=== PATIENT | male | born 1990 | race Caucasian/White ===

== ENCOUNTER 2019-12-07 00:08 | Emergency (ER) | payer SELFPAY ==
[2019-12-07 00:19] VITALS: BP 166/112; PULSE 116; RESP 17; TEMP 36.9; O2SAT 100; BMI 19.2
--- NOTE | 2019-12-07 00:37 | ECG_ITS ---
[facility] Test Date: 2019-12-07 Pat Name: Vasile Flowers Department: Room: Gender: Male Plan Nurse: : 1990 Requested By: Neha Chamorro Order Number: [id number] Deejay MD: Susan Hassan M.D. Measurements Intervals Kiefer Rate: 112 P: 75 CT: 136 QRS: 92 QRSD: 102 T: 28 QT: 319 QTc: 436 Interpretive Statements SINUS TACHYCARDIA POSSIBLE RIGHT ATRIAL ENLARGEMENT [0.25mV P WAVE] POSSIBLE LEFT ATRIAL ENLARGEMENT [-0.1mV P WAVE IN V1/V2] BORDERLINE RIGHT AXIS DEVIATION [QRS AXIS > 90] Compared to ECG 01/30/2017 16:13:09 No significant changes Electronically Signed On 12-07-2019 12:43:33 CDT by Susan Hassan M.D. [id number] f
[2019-12-07 01:03] LABS: Basophils # 0.1 10^3/uL (0.0-0.1); Basophils % 1.1 %; Eosinophils # 0.5 10^3/uL (0.0-0.8); Eosinophils % 4.9 %; Hematocrit 45.4 % (42.0-52.0); Hemoglobin 14.8 g/dL (11.7-16.6); Lymphocytes # 2.4 10^3/uL (0.8-4.8); Lymphocytes % 25.6 %; Mean Corpuscular HGB Conc 32.6 g/dL (30.0-36.0); Mean Corpuscular Hemoglobin 29.2 pg (28.0-34.0); Mean Corpuscular Volume 89.7 fL (80-94); Mean Platelet Volume 9.5 fL (7.4-10.4); Monocytes % 10.2 %; Nucleated Red Blood Cells % 0 %; Platelet Count 235 10^3/cmm (130-400); Red Blood Count 5.06 10^6/uL (4.1-5.3); Red Cell Distribution Width 13.2 % (12.1-15.1); White Blood Count 9.5 10^3/uL (4.0-10.0)
--- NOTE | 2019-12-07 01:14 | XR_ITS ---
WS: [id number] PORTABLE CHEST HISTORY: Chest pain COMPARISON: 05/14/2014 Lungs are clear and well expanded. No pleural effusion or pneumothorax. Cardiac size: Normal. Mediastinum/Aorta: Normal mediastinum. No osseous abnormality seen. XR/XR chest 1V portable [id number] IMPRESSION: Unremarkable portable chest.
[2019-12-07 01:19] VITALS: BP 160/127; PULSE 96; RESP 14; O2SAT 100
[2019-12-07] MEDS: sodium chloride 0.9% 1,000 ML 999 ML IV (01:21)
[2019-12-07 01:30] VITALS: BP 142/113; PULSE 88; RESP 12; O2SAT 99
[2019-12-07 01:34] LABS: Alanine Aminotransferase 62 U/L (0-41); Albumin Level 4.5 g/dL (3.5-5.2); Alkaline Phosphatase 112 IU/L (40-130); Anion Gap 11.5 (5-19); Aspartate Amino Transferase 23 U/L (0-40); Blood Urea Nitrogen 15 mg/dL (6-20); Calcium 9.3 mg/dL (8.5-10.5); Carbon Dioxide 32 mmol/L (22-29); Chloride 102 mmol/L (98-107); Globulin 2.5 g/dL (1.3-4.6); Glomerular Filtration Rate 115.1 mL/min (90-130); Glucose 94 mg/dL (65-115); Osmolality Calculated 288 mOsm/kg (285-295); Potassium 4.5 mmol/L (3.5-5.1); Sodium 141 mmol/L (136-145); Total Bilirubin 0.3 mg/dL (0.15-1.2)
[2019-12-07 01:35] LABS: Troponin(5th) Baseline 6 ng/L (0-15)
--- NOTE | 2019-12-07 02:05 | W.ED.CHESTPA ---
HPI - Chest Pain General: Chief Complaint: Chest Pain Stated Complaint: cp Time Seen by Provider: 12/07/19 01:03 Source: patient Mode of arrival: ambulatory Limitations: no limitations History of Present Illness: HPI narrative: Vasile is a 29-year-old male who comes in complaining of left-sided chest pain. He states the pains been going on for the past 8 days. He states the pain is sharp and intermittent in nature. Pain is similar to when he has had a collapsed lung in the past. He states it hurts to take a deep breath, it hurts to cough but he denies any fever or shortness of breath at rest. Patient is most concerned about a collapsed lung but denies any other complaints or concerns. Associated symptoms: Deny abdominal pain, diaphoresis, dyspnea, fever(s), nausea, palpitations, syncope or vomiting Review of Systems Const: Denies: fever(s), chills, body aches, fatigue, malaise or diaphoresis Eyes: Denies: change in vision, blurry vision, blind spots, photophobia, eye discharge or eye redness ENMT: Denies: throat pain, odynophagia, hoarseness, swelling of lips/tongue, oral sores, ear or mastoid pain, ear discharge, change in hearing or nasal discharge Card: Reports: chest pain; Denies: palpitations, irregular heart rhythm, edema, lightheadedness, syncope, pre-syncope, dyspnea on exertion or orthopnea Resp: Denies: dyspnea, productive cough, non-productive cough, wheezing, hemoptysis or chest congestion GI: Denies: abdominal pain, nausea, vomiting, hematemesis, coffee ground emesis, heartburn, diarrhea, constipation, GI cramping, hematochezia or melena : Denies: flank pain, dysuria, urinary frequency, urinary urgency or hematuria Musc: Denies: neck pain, back pain, extremity pain, extremity swelling, joint pain, joint swelling, joint redness, joint warmth or joint stiffness Skin/Breast: Denies: rash, pruritus, erythema, skin tenderness or jaundice Neuro: Denies: headache(s), numbness in extremities, weakness in extremities, sensory changes, lack of coordination, difficulty walking, dizziness, vertigo, confusion, Slurred speech present or seizure-like activity Ellis/Lymph: Denies: easy bruising, easy bleeding, petechiae, purpura or enlarged lymph nodes All/Imm: Denies: urticaria, throat swelling, tongue swelling, facial swelling or acute wheezing PFSH ED PFSH: Medical History Spontaneous pneumothorax Surgical History H/O chest tube placement Physical Exam Const: COMMON NORMALS: no acute distress, patient oriented x3, no limitations, healthy appearing and well nourished GENERAL APPEARANCE: cooperative, well kempt and well developed HENMT: COMMON NORMALS: normocephalic, atraumatic, external ears normal, EAC's normal and Normal external nose present HEAD & SCALP: normal to inspection, normocephalic and atraumatic FACE & SINUS: normal facial exam and face symmetric NOSE: Normal external nose present and Normal nares present EXTERNAL EAR: Yes external ears normal EXTERNAL AUDITORY CANAL: EAC's normal MOUTH: Normal oral and palatal mucosa present, lip normal and tongue normal Eye: COMMON NORMALS: Equal, round and reactive pupils present and conjunctivae normal GENERAL EYE: appearance normal, both eyes and all related structures ALIGNMENT: Yes alignment normal PERIORBITAL: periorbital findings normal EYELID: eyelids normal CONJUNCTIVA: Yes conjunctivae normal SCLERA: sclerae normal PUPIL: Yes Equal, round and reactive pupils present Neck/C-Spine: COMMON NORMALS: full ROM, no lymphadenopathy, supple, no meningeal signs and no JVD GENERAL: Yes normal visual inspection and Yes trachea midline Chest: COMMONS NORMALS: normal inspection of the chest and normal palpation of entire chest wall Resp: COMMON NORMALS: normal respiratory effort, No retractions and No use of accessory muscles EFFORT & INSPECTION: Yes able to speak in complete sentences and Yes symmetric chest movement AUSCULTATION: no crackles, no rales, no rhonchi and no wheezes Cardio: COMMON NORMALS: no JVD, regular rate, regular rhythm, S1 normal heart sound present and S2 normal heart sound present RATE: regular rate RHYTHM: regular rhythm HEART SOUNDS: S1 normal heart sound present, S2 normal heart sound present, no click, no gallops, no murmurs, no rubs and abnormal split S2 GI: COMMON NORMALS: Soft to palpation and No hepatosplenomegaly present PALPATION: Yes Soft to palpation, No Tenderness to palpation present (GI), No Guarding due to palpation present (GI), No Rigid due to palpation, Yes No hepatosplenomegaly present, No Hernia present, No Palpable mass present and No Pulsatile mass present : COMMON NORMALS: Yes no CVA tenderness BLADDER/KIDNEY EXAM: Yes no CVA tenderness Back/Pelvis: COMMON NORMALS: no CVA tenderness, thoracic and lumbar spine normal to inspection, no thoracic nor lumbar tenderness and thoraco-lumbar ROM normal Extremity: COMMON NORMALS: normal to inspection, full ROM, capillary refill normal, no joint enlargement, no clubbing, cyanosis or edema and no calf tenderness Neuro: COMMON NORMALS: patient oriented x3, CN's II-XII intact bilaterally, moves all extremities, no focal motor deficits and no sensory deficits noted MENINGEAL SIGNS: Yes no meningeal signs SPEECH: speech normal Psych: COMMON NORMALS: mental status grossly normal, Normal thought process present, cooperative, normal affect, speech normal and activity/motor behavior normal APPEARANCE: Yes well kempt SPEECH: Yes normal speech THOUGHT PROCESS: Normal thought process present Skin: COMMON NORMALS: no rashes or lesions noted, turgor normal, no jaundice, no petechiae and no mottling GENERAL SKIN EXAM: no rashes or lesions noted and turgor normal Course Vital Signs: Vital signs: Vital Signs Temperature 98.5 F 12/07/19 00:19 Pulse Rate 88 12/07/19 01:30 Respiratory Rate 12 12/07/19 01:30 Blood Pressure 142/113 12/07/19 01:30 Pulse Oximetry 99 12/07/19 01:30 MDM - Chest Pain MDM Narrative: Medical decision making narrative: Patient's chest x-ray and lab work are unremarkable. He is feeling better and ready to go home. I think he is pain is likely due to a chest wall strain. His tachycardia is likely due to methamphetamines. Patient is relieved to hear his lab work is unremarkable he is ready to go home. He denies any other complaints or concerns. Lab Data: Attestation: I reviewed the patient's lab results. Labs: Lab Results 12/07/19 12/07/19 12/07/19 Range/Units 00:52 00:52 00:52 WBC 9.5 (4.0-10.0) 10^3/ uL RBC 5.06 (4.1-5.3) 10^6/u L Hgb 14.8 (11.7-16.6) g/dL Hct 45.4 (42.0-52.0) % MCV 89.7 (80-94) fL MCH 29.2 (28.0-34.0) pg MCHC 32.6 (30.0-36.0) g/dL RDW 13.2 (12.1-15.1) % Plt Count 235 (130-400) 10^3/c mm MPV 9.5 (7.4-10.4) fL Neut % (Auto) 58.0 % Lymph % (Auto) 25.6 % [place] % (Auto) 10.2 % Eos % (Auto) 4.9 % Baso % (Auto) 1.1 % Neut # (Auto) 5.50 (1.8-7.7) 10^3/u L Lymph # (Auto) 2.4 (0.8-4.8) 10^3/u L [place] # (Auto) 1.0 H (0.2-0.9) 10^3/u L Eos # (Auto) 0.5 (0.0-0.8) 10^3/u L Baso # (Auto) 0.1 (0.0-0.1) 10^3/u L Nucleated RBC % (a uto) 0 % Nucleated RBCs # 0.0 /100WBC D-Dimer (0-0.59) ug/mIFE U Sodium 141 (136-145) mmol/L Potassium 4.5 (3.5-5.1) mmol/L Chloride 102 (98-107) mmol/L Carbon Dioxide 32 H (22-29) mmol/L Anion Gap 11.5 (5-19) BUN 15 (6-20) mg/dL Creatinine 0.8 (0.7-1.2) mg/dL GFR Calculation 115.1 (90-130) mL/min Glucose 94 (65-115) mg/dL Calculated Osmolal ity 288 (285-295) mOsm/k g Calcium 9.3 (8.5-10.5) mg/dL Total Bilirubin 0.3 (0.15-1.2) mg/dL AST 23 (0-40) U/L ALT 62 H (0-41) U/L Alkaline Phosphata se 112 (40-130) IU/L Troponin T Baselin e 6 (0-15) ng/L Total Protein 7.0 (6.6-8.7) g/dL Albumin 4.5 (3.5-5.2) g/dL Globulin 2.5 (1.3-4.6) g/dL Urine Opiates Scre en (Negative) ng/mL Ur Barbiturates Sc reen (Negative) ng/mL Ur Phencyclidine S crn (Negative) ng/mL Ur Amphetamines Sc reen (Negative) ng/mL U Benzodiazepines Scrn (Negative) ng/mL Urine Cocaine Scre en (Negative) ng/mL U Marijuana (THC) Screen (Negative) ng/mL 12/07/19 12/07/19 Range/Units 00:52 01:27 WBC (4.0-10.0) 10^3/ uL RBC (4.1-5.3) 10^6/u L Hgb (11.7-16.6) g/dL Hct (42.0-52.0) % MCV (80-94) fL MCH (28.0-34.0) pg MCHC (30.0-36.0) g/dL RDW (12.1-15.1) % Plt Count (130-400) 10^3/c mm MPV (7.4-10.4) fL Neut % (Auto) % Lymph % (Auto) % Ren[place] % (Auto) % Eos % (Auto) % Baso % (Auto) % Neut # (Auto) (1.8-7.7) 10^3/u L Lymph # (Auto) (0.8-4.8) 10^3/u L [place] # (Auto) (0.2-0.9) 10^3/u L Eos # (Auto) (0.0-0.8) 10^3/u L Baso # (Auto) (0.0-0.1) 10^3/u L Nucleated RBC % (a uto) % Nucleated RBCs # /100WBC D-Dimer 0.31 (0-0.59) ug/mIFE U Sodium (136-145) mmol/L Potassium (3.5-5.1) mmol/L Chloride (98-107) mmol/L Carbon Dioxide (22-29) mmol/L Anion Gap (5-19) BUN (6-20) mg/dL Creatinine (0.7-1.2) mg/dL GFR Calculation (90-130) mL/min Glucose (65-115) mg/dL Calculated Osmolal ity (285-295) mOsm/k g Calcium (8.5-10.5) mg/dL Total Bilirubin (0.15-1.2) mg/dL AST (0-40) U/L ALT (0-41) U/L Alkaline Phosphata se (40-130) IU/L Troponin T Baselin e (0-15) ng/L Total Protein (6.6-8.7) g/dL Albumin (3.5-5.2) g/dL Globulin (1.3-4.6) g/dL Urine Opiates Scre en Negative (Negative) ng/mL Ur Barbiturates Sc reen Negative (Negative) ng/mL Ur Phencyclidine S crn Negative (Negative) ng/mL Ur Amphetamines Sc reen Positive H (Negative) ng/mL U Benzodiazepines Scrn Negative (Negative) ng/mL Urine Cocaine Scre en Negative (Negative) ng/mL U Marijuana (THC) Screen Negative (Negative) ng/mL EKG Data^: EKG 1: Attestation: I personally reviewed and interpreted this EKG as follows: EKG interpretation date: 12/07/19 EKG interpretation time: 00:25 Interpretation: Sinus tachycardia to 112 beats a minute, right axis deviation, left posterior fascicular block. No acute ST-T wave changes. Discharge Plan Discharge Patient Disposition: Home Clinical Impression: Chest pain Qualifiers: Chest pain type: unspecified Qualified Code(s): R07.9 - Chest pain, unspecified Condition: Stable Prescriptions: New ibuprofen [Motrin IB] 200 mg tablet 200 mg PO Q6H PRN (Reason: pain) Qty: 60 RF: 0 Discharge Orders: Discharge Order (Routine); Ordered 12/07/19 Ordered By: Neha Caro Referrals: Adryan Brody DO [Primary Care Provider] - 1-3 days Discharge Diet: Advance as tolerated Discharge Activity: Resume usual activity Patient Instructions: Chest Pain (ED) Activity Restrictions/Additional Instructions: Please return to the ER immediately for any of the signs or symptoms listed on your discharge instruction sheets, worsening/changing of your symptoms, you are not getting better as quickly as expected, or for ANY other cause or concerns. Coding Level of Care Code ED Driver'S License Reviewing Officer for Chg Fwd Exam Comprehensive
[2019-12-07 02:15] LABS: Amphetamines Screen Urine Positive (Negative); Barbiturates Screen Urine Negative (Negative); Benzodiazepines Screen Urine Negative (Negative); Cocaine Screen Urine Negative (Negative); Opiate Screen Urine Negative (Negative); PCP Screen Urine Negative (Negative); THC Screen Urine Negative (Negative)
[2019-12-07 02:18] LABS: D Dimer 0.31 ug/mIFEU (0-0.59)
[2019-12-07] MEDS: ketorolac 30 mg/mL INJ 10 MG IVP (02:43)
[2019-12-07 03:13] VITALS: BP 149/107; PULSE 92; RESP 17; O2SAT 100
== END 2019-12-07 03:16 | disposition home or self-care (01) ==
PROVIDERS: Emergency Provider Emergency Medicine; PCP Family Medicine
DX: R07.9 Chest pain, unspecified (principal)
CPT/HCPCS: 12345; 36415; 71045; 80053; 80306; 84484; 85025; 85378; 93005; 96361; 96374; 96375; 99283; 99284; J1885; J7030

== ENCOUNTER 2020-03-20 22:49 | Emergency (ER) | payer SELFPAY ==
[2020-03-20 22:55] VITALS: BP 147/96; PULSE 116; RESP 20; TEMP 36.9; O2SAT 100; BMI 19.2
--- NOTE | 2020-03-20 23:00 | CTR_ITS ---
PROCEDURE INFORMATION: Exam: CT Head Without Contrast Exam date and time: 03/20/2020 11:17 PM Age: 29 years old Clinical indication: Injury or trauma; Fall; Laceration; With loss of consciousness; Loss of consciousness for 30 minutes or less; Without residual foreign body; Forehead; Additional info: Head injury TECHNIQUE: Imaging protocol: Computed tomography of the head without contrast. Radiation optimization: All CT scans at this facility use at least one of these dose optimization techniques: automated exposure control; mA and/or kV adjustment per patient size (includes targeted exams where dose is matched to clinical indication); or iterative reconstruction. COMPARISON: No relevant prior studies available. RADIATION DOSE METRICS: Total DLP (mGy-cm): 855.88 FINDINGS: Brain: Normal. No hemorrhage. Unremarkable white matter. No mass effect. Cerebral ventricles: No ventriculomegaly. Bones/joints: Unremarkable. No acute fracture. Paranasal sinuses: Visualized sinuses are unremarkable. No fluid levels. Mastoid air cells: Visualized mastoid air cells are well aerated. Soft tissues: Unremarkable. CT/CT head wo con* [id number] IMPRESSION: Negative for intracranial hemorrhage or mass effect. Radiation Dose CTDIVOL = (mGy): DLP = 855.88 (mGy-cm)
--- NOTE | 2020-03-20 23:01 | CTR_ITS ---
PROCEDURE INFORMATION: Exam: CT Cervical Spine Without Contrast Exam date and time: 03/20/2020 11:17 PM Age: 29 years old Clinical indication: Injury or trauma; Fall; Blunt trauma; Additional info: Fall, head injury TECHNIQUE: Imaging protocol: Computed tomography images of the cervical spine without contrast. Radiation optimization: All CT scans at this facility use at least one of these dose optimization techniques: automated exposure control; mA and/or kV adjustment per patient size (includes targeted exams where dose is matched to clinical indication); or iterative reconstruction. COMPARISON: No relevant prior studies available. RADIATION DOSE METRICS: Total DLP (mGy-cm): 428.72 FINDINGS: Vertebrae: No acute fracture. Normal alignment. C2-C3: No significant disc protrusion. No severe spinal canal stenosis. No significant neural foraminal narrowing. C3-C4: No significant disc protrusion. No severe spinal canal stenosis. No significant neural foraminal narrowing. C4-C5: No significant disc protrusion. No severe spinal canal stenosis. No significant neural foraminal narrowing. C5-C6: No significant disc protrusion. No severe spinal canal stenosis. No significant neural foraminal narrowing. C6-C7: No significant disc protrusion. No severe spinal canal stenosis. No significant neural foraminal narrowing. C7-T1: No significant disc protrusion. No severe spinal canal stenosis. No significant neural foraminal narrowing. Soft tissues: Unremarkable. Lungs: Paraseptal emphysematous changes. CT/CT cervical spin wo con* [id number] IMPRESSION: Negative for fracture or dislocation Radiation Dose CTDIVOL = (mGy): DLP = 428.72 (mGy-cm)
[2020-03-20] MEDS: ondansetron 2 mg/ML SDV 2 mL 4 MG IVP (23:21)
[2020-03-20 23:22] VITALS: RESP 18; O2SAT 99
[2020-03-20] MEDS: morphine 4 mg/mL SDV 1 mL IVP (23:22)
[2020-03-20 23:26] VITALS: BP 135/101; PULSE 78; RESP 18; O2SAT 100
--- NOTE | 2020-03-20 23:54 | W.ED.FALL ---
Documented by User: Cindy Linares MD 03/21/20 04:37 HPI - Fall General: Chief Complaint: Fall Stated Complaint: head lac Time Seen by Provider: 03/20/20 23:01 History of Present Illness: HPI Narrative: This patient is a 29-year-old male who presents today after falling and striking his head on a furnace. He thinks he knocked himself out for several minutes before coming to. He has a laceration on his forehead. He also has pain in his neck and the back of his head. He comes in for further evaluation. He denies any medical history. He does admit to IV meth use. He has not used in a couple of days. He denies any other injuries from the fall. complaint: fall Onset (ago): hour(s) (1) Fall from: standing Place fall occurred: home Loss of consciousness: Yes Length of LOC: minutes(s) Prolonged down time: no Symptoms prior to fall: none and other (Was carrying wood to the furnace and tripped) Context: tripped/slipped Location of injury: head and neck Severity: moderate Severity scale (1-10): 5 Quality: sharp (Front) and dull (Back of his head) Review of Systems Eyes: Denies: change in vision Resp: Denies: dyspnea or productive cough GI: Denies: nausea or vomiting [facility] ED PFSH: Medical History (Updated 03/21/20 @ 01:09 by Cindy Linares MD) Spontaneous pneumothorax Surgical History H/O chest tube placement Physical Exam Const: COMMON NORMALS: patient oriented x3, no limitations and alert GENERAL APPEARANCE: cooperative and in distress ORIENTATION/CONSCIOUSNESS: Yes awake, Yes oriented to person, Yes oriented to place and Yes oriented to time Eye: GENERAL EYE: appearance normal, both eyes and all related structures Neck/C-Spine: COMMON NORMALS: supple, no meningeal signs and no JVD Chest: COMMONS NORMALS: normal inspection of the chest Resp: COMMON NORMALS: normal respiratory effort, No use of accessory muscles and clear to auscultation bilaterally AUSCULTATION: clear to auscultation bilaterally Cardio: COMMON NORMALS: no JVD, regular rate, regular rhythm and No murmurs present (Cardio) RATE: regular rate RHYTHM: regular rhythm GI: COMMON NORMALS: Normal to inspection, nondistended, normoactive bowel sounds present, Soft to palpation and non-tender INSPECTION: Yes normal to inspection AUSCULTATION: Yes normoactive bowel sounds PALPATION: Yes Soft to palpation Back/Pelvis: COMMON NORMALS: thoracic and lumbar spine normal to inspection Extremity: COMMON NORMALS: normal to inspection Neuro: COMMON NORMALS: patient oriented x3, moves all extremities, no focal motor deficits and no sensory deficits noted SENSORIUM/ORIENTATION: Yes alert, Yes oriented to person, Yes oriented to place and Yes oriented to time MENINGEAL SIGNS: Yes no meningeal signs Psych: COMMON NORMALS: mental status grossly normal, cooperative and normal affect Skin: COMMON NORMALS: no rashes or lesions noted and turgor normal GENERAL SKIN EXAM: no rashes or lesions noted and turgor normal Course ED course: Patient in severe pain on initial evaluation. CT of head and C-spine ordered. Morphine and Zofran given for pain. Planning for laceration repair. Vital Signs: Vital signs: Vital Signs Temperature 98.4 F 03/20/20 22:55 Pulse Rate 90 03/21/20 01:20 Respiratory Rate 18 03/21/20 01:20 Blood Pressure 136/91 03/21/20 01:20 Pulse Oximetry 99 03/21/20 01:20 Discharge Plan Discharge Patient Disposition: Home Clinical Impression: Concussion with loss of consciousness Qualifiers: Encounter type: initial encounter Qualified Code(s): S06.0X9A - Concussion with loss of consciousness of unspecified duration, initial encounter Laceration of face Qualifiers: Encounter type: initial encounter Qualified Code(s): S01.81XA - Laceration without foreign body of other part of head, initial encounter Condition: Stable Prescriptions: No Action Motrin IB 200 mg tablet 200 mg PO Q6H PRN (Reason: pain) Qty: 60 RF: 0 Discharge Orders: Discharge Order (Routine); Ordered 03/21/20 Ordered By: Cindy Linares Referrals: Adryan Brody DO [Primary Care Provider] - Discharge Diet: Usual diet Discharge Activity: Resume usual activity Patient Instructions: Laceration (ED), Concussion (ED) Activity Restrictions/Additional Instructions: Wound care as instructed. Return to have sutures removed in 5 to 7 days. Rest until headache is better. Concussion can cause symptoms including dizziness, difficulty concentrating, headache, problems with memory. Those should gradually resolve over time. You may take up to 1000 mg of acetaminophen every 4 hours and 600 mg of ibuprofen every 6 hours as needed for pain. Coding Level of Care Code ED Grounds Restoration Specialist for Leta Fwd Exam Comprehensive Documented by User: AUREA Bishop 03/21/20 19:22 HPI - Fall General: Chief Complaint: Fall Stated Complaint: head lac Time Seen by Provider: 03/20/20 23:01 [facility] ED PFSH: Medical History (Updated 03/21/20 @ 01:09 by Cindy Linares MD) Spontaneous pneumothorax Surgical History H/O chest tube placement Procedures Laceration Laceration 1: Site: scalp Size (cm): 3.5 Description: linear and clean Depth: simple, single layer Local Anesthetic: lidocaine 1% and with epi Amount of anesthesia used (mL): 4 Skin layer closed with: nylon Size (cm): 5-0 Number of sutures: 6 Technique: simple, interrupted Course Vital Signs: Vital signs: Vital Signs Temperature 98.4 F 03/20/20 22:55 Pulse Rate 90 03/21/20 01:20 Respiratory Rate 18 03/21/20 01:20 Blood Pressure 136/91 03/21/20 01:20 Pulse Oximetry 99 03/21/20 01:20 Discharge Plan Discharge Patient Disposition: Home Clinical Impression: Concussion with loss of consciousness Qualifiers: Encounter type: initial encounter Qualified Code(s): S06.0X9A - Concussion with loss of consciousness of unspecified duration, initial encounter Laceration of face Qualifiers: Encounter type: initial encounter Qualified Code(s): S01.81XA - Laceration without foreign body of other part of head, initial encounter Condition: Stable Prescriptions: No Action Motrin IB 200 mg tablet 200 mg PO Q6H PRN (Reason: pain) Qty: 60 RF: 0 Discharge Orders: Discharge Order (Routine); Ordered 03/21/20 Ordered By: Cindy Linares Referrals: Adryan Brody, [Primary Care Provider] - Discharge Diet: Usual diet Discharge Activity: Resume usual activity Patient Instructions: Laceration (ED), Concussion (ED) Activity Restrictions/Additional Instructions: Wound care as instructed. Return to have sutures removed in 5 to 7 days. Rest until headache is better. Concussion can cause symptoms including dizziness, difficulty concentrating, headache, problems with memory. Those should gradually resolve over time. You may take up to 1000 mg of acetaminophen every 4 hours and 600 mg of ibuprofen every 6 hours as needed for pain. Coding Level of Care Code ED Grounds Restoration Specialist for Chg Fwd Exam Comprehensive
[2020-03-21 00:56] VITALS: BP 127/92; RESP 78; O2SAT 98
[2020-03-21] MEDS: ketorolac 30 mg/mL INJ 15 MG IVP (01:13)
[2020-03-21] MEDS: tetanus-dipt-pertussis 0.5 mL SDV IM (01:18)
[2020-03-21 01:20] VITALS: BP 136/91; PULSE 90; RESP 18; O2SAT 99
== END 2020-03-21 01:25 | disposition home or self-care (01) ==
PROVIDERS: Emergency Provider Emergency Medicine; PCP Family Medicine
DX: S01.81XA Laceration without foreign body of other part of head, initial encounter (principal); S06.0X9A Concussion with loss of consciousness of unspecified duration, initial encounter; W22.09XA Striking against other stationary object, initial encounter; Z23 Encounter for immunization
CPT/HCPCS: 12002; 12345; 70450; 72125; 90715; 96374; 96375; 99283; J1885; J2270; J2405

== ENCOUNTER 2020-11-30 00:07 | Emergency (ER) | payer MEDICAID, SELFPAY ==
--- NOTE | 2020-11-30 00:11 | XRR_ITS ---
PROCEDURE INFORMATION: Exam: XR Left Ankle Exam date and time: 11/30/2020 12:11 AM Age: 30 years old Clinical indication: Pain; Ankle; Left; Additional info: Pain, swlling, redness in left ankle. Denies any injury TECHNIQUE: Imaging protocol: XR Left ankle. Views: 3 or more views. COMPARISON: No relevant prior studies available. FINDINGS: Bones/joints: No fracture. Soft tissues: Diffuse soft tissue edema. XR/XR ankle LT min 3V* [id number] IMPRESSION: 1. No fracture. 2. Diffuse soft tissue edema.
[2020-11-30 00:45] VITALS: BP 149/90; PULSE 124; RESP 18; TEMP 37.6; O2SAT 94; BMI 17.4
--- NOTE | 2020-11-30 00:59 | ED_ITS ---
HPI - Extremity Problem General: Chief complaint: Extremity Injury, Lower Stated complaint: l ankle injury Time Seen by Provider: 11/30/20 00:54 History of Present Illness: HPI Narrative: Patient is a 30-year-old male comes to the ED with left ankle pain and swelling. Symptoms started 3 days ago. Patient denies any injury or trauma to left ankle. Denies any cut or abrasion around left ankle as well. Swelling to the medial aspect of the ankle started and was small and there was a little bit of ecchymosis present. Over the next couple days the swelling and ecchymosis got bigger. He is now having severe pain in his left ankle and he rates the pain an 8 out of 10. He does state that he has a history of IV drug abuse but denies any recent IV drug use. Associated symptoms: Deny chest pain, fever(s) or rash Review of Systems Const: Denies: fever(s), chills or fatigue Eyes: Denies: change in vision or eye discomfort ENMT: Denies: throat pain, odynophagia, nasal discharge or nasal congestion Card: Denies: chest pain, palpitations, edema, swelling of feet/ankles, dyspnea on exertion or orthopnea Resp: Denies: dyspnea, productive cough or non-productive cough GI: Denies: abdominal pain, nausea, vomiting, diarrhea, constipation or hematochezia : Denies: flank pain, difficulty urinating, dysuria or hematuria Musc: Reports: extremity pain (Left ankle) and extremity swelling (Left ankle); Denies: neck pain or back pain Skin/Breast: Denies: rash or new lesions Neuro: Denies: headache(s), numbness in extremities or weakness in extremities PFS ED PFSH: Medical History Spontaneous pneumothorax Surgical History H/O chest tube placement Physical Exam Const: COMMON NORMALS: patient oriented x3 and alert GENERAL APPEARANCE: cooperative and in distress (pain due to left foot) HENMT: COMMON NORMALS: normocephalic HEAD & SCALP: normocephalic MOUTH: Normal oral and palatal mucosa present THROAT: posterior oropharynx normal and uvula midline Neck/C-Spine: COMMON NORMALS: supple GENERAL: Yes normal visual inspection Resp: COMMON NORMALS: normal respiratory effort, No retractions, No use of accessory muscles and clear to auscultation bilaterally AUSCULTATION: clear to auscultation bilaterally Cardio: COMMON NORMALS: regular rate, regular rhythm, S1 normal heart sound present, S2 normal heart sound present, No gallops present (Cardio), No clicks present (Cardio), No murmurs present (Cardio) and Peripheral pulses 2+ throughout RATE: regular rate RHYTHM: regular rhythm HEART SOUNDS: S1 normal heart sound present and S2 normal heart sound present PERIPHERAL PULSES: Peripheral pulses 2+ throughout GI: COMMON NORMALS: Normal to inspection, nondistended, normoactive bowel sounds present, Soft to palpation, non-tender and no masses PALPATION: Yes Soft to palpation : COMMON NORMALS: Yes no CVA tenderness BLADDER/KIDNEY EXAM: Yes no CVA tenderness Back/Pelvis: COMMON NORMALS: no CVA tenderness Extremity: NARRATIVE EXTREMITY EXAM: Left foot? significant swelling, erythema and warmth in medial aspect of left foot and ankle. He has severe tenderness which seems out of proportion to normal cellulitis. Exam findings remarkable for possible cellulitis or developing abscess. Pain with range of motion in ankle. GENERAL: Yes normal exam except as noted Neuro: COMMON NORMALS: patient oriented x3 and moves all extremities SENSORIUM/ORIENTATION: Yes alert Skin: NARRATIVE SKIN EXAM: Patient has significant swelling, erythema and warmth in medial aspect of left foot and ankle. He has severe tenderness which seems out of proportion to normal cellulitis. Exam findings remarkable for possible cellulitis or developing abscess. GENERAL SKIN EXAM: dry skin Course Vital Signs: Vital signs: Vital Signs Temperature 99.7 F H 11/30/20 00:45 Pulse Rate 110 H 11/30/20 03:26 Respiratory Rate 18 11/30/20 03:26 Blood Pressure 145/86 11/30/20 03:26 Pulse Oximetry 100 11/30/20 03:26 MDM - Extremity (Nontraumatic) MDM Narrative: Medical decision making narrative: Patient is a 30-year-old male comes to the ED with left foot and ankle swelling and pain. Patient denies any injury or trauma. He does state that he has a history of IV drug abuse but denies any recent IV drug use. Exam shows signs of cellulitis in left foot but with his extreme tenderness upon exam of suspicious for an abscess. X-ray of left ankle showed no acute fractures but did show soft tissue edema. Sodium level 129 but the rest of CBC and CMP were unremarkable. CRP is 57.2. CT of left foot with contrast showed no fractures, but did note cellulitis with no abscess developing. Patient was given IV fluids, Rocephin while here in the ED. He was also given some morphine initially and then Dilaudid to help with his pain. Patient diagnosed with cellulitis and hyponatremia. He was discharged home with Celebrex for pain and Bactrim. He was told to follow-up with his PCP in 5 days for reevaluation and recheck sodium labs. Return to ED precautions given. He was also discharged with some crutches and told to elevate his foot as much as possible to help with swelling. Patient understood agree with plan. Lab Data: Attestation: I reviewed the patient's lab results. Labs: Lab Results 11/30/20 11/30/20 Range/Units 02:55 02:55 WBC 7.8 (4.0-10.0) 10^3/ uL RBC 4.11 (4.1-5.3) 10^6/u L Hgb 12.1 (11.7-16.6) g/dL Hct 36.3 L (42.0-52.0) % MCV 88.3 (80-94) fL MCH 29.4 (28.0-34.0) pg MCHC 33.3 (30.0-36.0) g/dL RDW 12.6 (12.1-15.1) % Plt Count 182 (130-400) 10^3/c mm MPV 9.7 (7.4-10.4) fL Neut % (Auto) 49.9 % Lymph % (Auto) 31.5 % Cavalier % (Auto) 15.3 % Eos % (Auto) 2.4 % Baso % (Auto) 0.8 % Neut # (Auto) 3.90 (1.8-7.7) 10^3/u L Lymph # (Auto) 2.5 (0.8-4.8) 10^3/u L Cavalier # (Auto) 1.2 H (0.2-0.9) 10^3/u L Eos # (Auto) 0.2 (0.0-0.8) 10^3/u L Baso # (Auto) 0.1 (0.0-0.1) 10^3/u L Nucleated RBC % (a uto) 0 % Nucleated RBCs # 0.0 /100WBC Sodium 129 L (136-145) mmol/L Potassium 3.4 L (3.5-5.1) mmol/L Chloride 92 L (98-107) mmol/L Carbon Dioxide 30 H (22-29) mmol/L Anion Gap 10.4 (5-19) BUN 11 (6-20) mg/dL Creatinine 0.7 (0.7-1.2) mg/dL GFR Calculation 133.3 H (90-130) mL/min Glucose 70 (65-115) mg/dL Calculated Osmolal ity 266 L (285-295) mOsm/k g Calcium 8.5 (8.5-10.5) mg/dL Total Bilirubin 0.5 (0.15-1.2) mg/dL AST 32 (0-40) U/L ALT 42 H (0-41) U/L Alkaline Phosphata se 87 (40-130) IU/L C-Reactive Protein 57.2 H (0.0-4.9) mg/L Total Protein 6.5 L (6.6-8.7) g/dL Albumin 3.9 (3.5-5.2) g/dL Globulin 2.6 (1.3-4.6) g/dL Imaging Data^: Xray Ortho: Attestation: I personally reviewed and interpreted this imaging study as follows: Radiologist's impression: [address] [address] XRay Report Signed Patient: Vasile Flowers Unit #: [id number] : 1990 Age/Sex: 30 / M ADM Date: 11/30/20 Loc: ER Room/Bed: Attending Dr: Ordering Provider/Ordering MD: Mimi Shepherd MD Date of Service: 11/30/20 Procedure(s): XR ankle LT min 3V* [id number] Accession Number(s): [id number] Report Number: [id number] PROCEDURE INFORMATION: Exam: XR Left Ankle Exam date and time: 11/30/2020 12:11 AM Age: 30 years old Clinical indication: Pain; Ankle; Left; Additional info: Pain, swlling, redness in left ankle. Denies any injury TECHNIQUE: Imaging protocol: XR Left ankle. Views: 3 or more views. COMPARISON: No relevant prior studies available. FINDINGS: Bones/joints: No fracture. Soft tissues: Diffuse soft tissue edema. XR/XR ankle LT min 3V* [id number] IMPRESSION: 1. No fracture. 2. Diffuse soft tissue edema. Dictated By: Ankit Diaz Signed By: Ankit Diaz Signed Date/Time: 11/30/20302 DD/ [address]: Attestation: I personally reviewed and interpreted this imaging study as follows: Radiologist's impression: [facility] [address] [address] Scan Report Signed Patient: Vasile Flowers Unit #: [id number] : 1990 Age/Sex: 30 / M ADM Date: 11/30/20 Loc: ER Room/Bed: Attending Dr: Ordering Provider/Ordering MD: Jaret Eubanks Date of Service: 11/30/20 Procedure(s): CT foot LT w con [id number] Accession Number(s): [id number] Report Number: [id number] PROCEDURE INFORMATION: Exam: CT Left Lower Extremity With Contrast, Foot Exam date and time: 11/30/2020 2:26 AM Age: 30 years old Clinical indication: Cellulitis and swelling, leg or foot; Left; Patient HX: Swelling with redness to foot. Possible cellulitis. Patient appears to be in excruciating pain. ; Additional info: Foot and ankle swelling, pain and redness. No injury TECHNIQUE: Imaging protocol: CT of the Left lower extremity with intravenous contrast was performed. Exam focused on the foot. Radiation optimization: All CT scans at this facility use at least one of these dose optimization techniques: automated exposure control; mA and/or kV adjustment per patient size (includes targeted exams where dose is matched to clinical indication); or iterative reconstruction. Contrast material: OMNI 300; Contrast volume: 95 ml; Contrast route: INTRAVENOUS (IV); COMPARISON: CR (LOW EXM, ) 11/30/2020 12:48 AM RADIATION DOSE METRICS: Total DLP (mGy-cm): 138.31 FINDINGS: Bones/joints: No acute fracture or dislocation. Soft tissues: Subcutaneous edema without abscess. CT/CT foot LT w con [id number] IMPRESSION: 1. No acute fracture or dislocation. 2. Cellulitis. No abscess. Radiation Dose CTDIVOL = (mGy): DLP = 138.31 (mGy-cm) Dictated By: Ankit Diaz Signed By: Ankit Diaz Signed Date/Time: 11/30/20301 DD/ 0 Discharge Plan Discharge Patient Disposition: Home Clinical Impression: Hyponatremia Cellulitis Qualifiers: Site of cellulitis: extremity Site of cellulitis of extremity: lower extremity Laterality: left Qualified Code(s): L03.116 - Cellulitis of left lower limb Condition: Stable Prescriptions: New Bactrim DS 800-160 mg tablet 1 tab PO BID 10 Days Qty: 20 RF: 0 Celebrex 100 mg capsule 100 mg PO BID PRN (Reason: pain) Qty: 20 RF: 0 No Action Motrin IB 200 mg tablet 200 mg PO Q6H PRN (Reason: pain) Qty: 60 RF: 0 Discharge Orders: Discharge ED (Routine); Ordered 11/30/20 Ordered By: Jaret Eubanks Referrals: Adryan Brody DO [Primary Care Provider] - Discharge Diet: Regular Discharge Activity: Increase activity as tolerated and Use walker/crutches as instructed Patient Instructions: Cellulitis (ED), Hyponatremia (ED) Activity Restrictions/Additional Instructions: Follow-up with medical provider as directed in 5 days for reevaluation and to get sodium levels rechecked. Take medications as prescribed. Rest and elevate left foot to help with swelling. Use crutches to help with ambulation. Return to the ER or your medical provider if condition worsens. Please read and understand discharge instructions. Thank you for choosing [facility] for your healthcare needs today. Please realize this is an emergency room and that we are providing you with a medical screening exam and this may not be complete and all inclusive of all the testing and or work up that you may need to determine your ailment or severity of your illness. It is very important that you follow up as instructed or that you return to the Emergency Department should you have concerns or if your co ndition changes or worsens in any way. Coding Level of Care Code ED Conduit Reamer Operator for Chg Fwd Exam Comprehensive
[2020-11-30] MEDS: morphine 4 mg/mL SDV 1 mL IM (01:40)
--- NOTE | 2020-11-30 02:26 | CTR_ITS ---
PROCEDURE INFORMATION: Exam: CT Left Lower Extremity With Contrast, Foot Exam date and time: 11/30/2020 2:26 AM Age: 30 years old Clinical indication: Cellulitis and swelling, leg or foot; Left; Patient HX: Swelling with redness to foot. Possible cellulitis. Patient appears to be in excruciating pain. ; Additional info: Foot and ankle swelling, pain and redness. No injury TECHNIQUE: Imaging protocol: CT of the Left lower extremity with intravenous contrast was performed. Exam focused on the foot. Radiation optimization: All CT scans at this facility use at least one of these dose optimization techniques: automated exposure control; mA and/or kV adjustment per patient size (includes targeted exams where dose is matched to clinical indication); or iterative reconstruction. Contrast material: OMNI 300; Contrast volume: 95 ml; Contrast route: INTRAVENOUS (IV); COMPARISON: CR (LOW EXM, ) 11/30/2020 12:48 AM RADIATION DOSE METRICS: Total DLP (mGy-cm): 138.31 FINDINGS: Bones/joints: No acute fracture or dislocation. Soft tissues: Subcutaneous edema without abscess. CT/CT foot LT w con [id number] IMPRESSION: 1. No acute fracture or dislocation. 2. Cellulitis. No abscess. Radiation Dose CTDIVOL = (mGy): DLP = 138.31 (mGy-cm)
[2020-11-30] MEDS: iohexol 300 mg/mL 100 mL Btl IV (02:44)
[2020-11-30 02:58] VITALS: BP 150/92; PULSE 105; RESP 26; O2SAT 96
[2020-11-30] MEDS: HYDROmorphone 1 mg/mL INJ 1 mL IVP (02:59)
[2020-11-30 03:04] LABS: Basophils # 0.1 10^3/uL (0.0-0.1); Basophils % 0.8 %; Eosinophils # 0.2 10^3/uL (0.0-0.8); Eosinophils % 2.4 %; Hematocrit 36.3 % (42.0-52.0); Hemoglobin 12.1 g/dL (11.7-16.6); Lymphocytes # 2.5 10^3/uL (0.8-4.8); Lymphocytes % 31.5 %; Mean Corpuscular HGB Conc 33.3 g/dL (30.0-36.0); Mean Corpuscular Hemoglobin 29.4 pg (28.0-34.0); Mean Corpuscular Volume 88.3 fL (80-94); Mean Platelet Volume 9.7 fL (7.4-10.4); Monocytes # 1.2 10^3/uL (0.2-0.9); Monocytes % 15.3 %; Neutrophils % 49.9 %; Nucleated Red Blood Cells % 0 %; Platelet Count 182 10^3/cmm (130-400); Red Blood Count 4.11 10^6/uL (4.1-5.3); Red Cell Distribution Width 12.6 % (12.1-15.1); White Blood Count 7.8 10^3/uL (4.0-10.0)
[2020-11-30 03:22] LABS: Alanine Aminotransferase 42 U/L (0-41); Albumin Level 3.9 g/dL (3.5-5.2); Alkaline Phosphatase 87 IU/L (40-130); Anion Gap 10.4 (5-19); Aspartate Amino Transferase 32 U/L (0-40); Blood Urea Nitrogen 11 mg/dL (6-20); C Reactive Protein 57.2 mg/L (0.0-4.9); Calcium 8.5 mg/dL (8.5-10.5); Carbon Dioxide 30 mmol/L (22-29); Chloride 92 mmol/L (98-107); Globulin 2.6 g/dL (1.3-4.6); Glomerular Filtration Rate 133.3 mL/min (90-130); Glucose 70 mg/dL (65-115); Osmolality Calculated 266 mOsm/kg (285-295); Potassium 3.4 mmol/L (3.5-5.1); Sodium 129 mmol/L (136-145); Total Bilirubin 0.5 mg/dL (0.15-1.2); Total Protein 6.5 g/dL (6.6-8.7)
[2020-11-30 03:26] VITALS: BP 145/86; PULSE 110; RESP 18; O2SAT 100
[2020-11-30] MEDS: cefTRIAXone 1,000 MG in sodium chloride 0.9% (plus) 100 ML 200 MG IV (03:26)
[2020-11-30] MEDS: sodium chloride 0.9% 1,000 ML 999 ML IV (03:35)
== END 2020-11-30 04:46 | disposition home or self-care (01) ==
PROVIDERS: Emergency Provider Physician Assistant; PCP Family Medicine
DX: L03.116 Cellulitis of left lower limb (principal); E87.1 Hypo-osmolality and hyponatremia
CPT/HCPCS: 73610; 73701; 80053; 85025; 86140; 87040; 96365; 96375; 99284; E0114; J0696; J1170; J2270; J7030; Q9967